=== PATIENT | female | born 1980 | race Caucasian/White ===

== ENCOUNTER 2017-12-11 07:23 | Emergency (ER) | payer BC ==
[2017-12-11 07:38] VITALS: BP 129/63
--- NOTE | 2017-12-11 08:00 | UC ---
Throat Pain/Nasal Kenneth HPI - HPI Summary HPI Summary: Patient states her children were diagnosed with strep throat and yesterday she started feeling unwell with sore throat which has become worse this morning. Denies chills or fever, denies cough. She states that as a child she had stomach upset with PCN but ever since she has taken it as an adult and has not had any allergic reactions to it. - History of Current Complaint Chief Complaint: UCRespiratory Stated Complaint: THROAT COMPLAINT Time Seen by Provider: 12/11/17 07:42 Hx Obtained From: Patient Hx Last Menstrual Period: 11/12 ?: No Onset/Duration: Gradual Onset, Lasting Days Severity: Moderate Pain Intensity: 7 Cough: None Associated Signs & Symptoms: Positive: Dysphagia Related History: Seasonal Allergies - Epiglottits Risk Factors Epiglottis Risk Factors: Negative - Allergies/Home Medications Allergies/Adverse Reactions: Allergies Allergy/AdvReac Type Severity Reaction Status Date / Time penicillin V Allergy Rash Verified 12/11/17 07:38 Home Medications: Home Medications Fexofenadine/Pseudoephedrine [Jessica-D 24 Hour Tablet] 1 each PO DAILY PRN [History Confirmed 12/11/17] PMH/Surg Hx/FS Hx/Imm Hx Previously Healthy: Yes - Surgical History Surgical History: Yes Surgery Procedure, Year, and Place: ectopic 2008, oopherectomy 2009 - Family History Known Family History: Positive: None - Social History Alcohol Use: Occasionally Substance Use Type: None Smoking Status (MU): Never Smoked Tobacco - Immunization History Most Recent Tetanus Shot: unknown Review of Systems ENT: Sore Throat All Other Systems Reviewed And Are Negative: Yes Physical Exam Triage Information Reviewed: Yes Appearance: Well-Appearing, No Pain Distress, Well-Nourished Vital Signs: Initial Vital Signs Temp 98.5 F 12/11/17 07:32 Pulse 74 12/11/17 07:32 Resp 18 12/11/17 07:32 BP 129/63 12/11/17 07:32 Pulse Ox 99 12/11/17 07:32 Vital Signs Reviewed: Yes Eyes: Positive: Conjunctiva Clear ENT: Positive: Hearing grossly normal, Pharynx normal, TMs normal, Uvula midline Neck: Positive: Supple, Nontender, No Lymphadenopathy Respiratory: Positive: Chest non-tender, Lungs clear, Normal breath sounds, No respiratory distress Cardiovascular: Positive: RRR, No Murmur, Pulses Normal, Brisk Capillary Refill Abdomen Description: Positive: Nontender Throat Pain/Nasal Course/Dx - Course Course Of Treatment: Rapid strep was positive, will start treatment with amoxil 875mg po bid for 10 days, continue PO fluids and probiotics. F/u PCP as needed. - Differential Dx/Diagnosis Provider Diagnoses: Streptococcal pharyngitis Discharge - Sign-Out/Discharge Documenting (check all that apply): Patient Departure All imaging exams completed and their final reports reviewed: No Studies - Discharge Plan Condition: Stable Disposition: HOME Patient Education Materials: Strep Throat (DC), Amoxicillin (By mouth) Referrals: Dominick Haines PA [Primary Care Provider] - - Billing Disposition and Condition Condition: STABLE Disposition: Home
== END 2017-12-11 08:08 | disposition home or self-care (01) ==
LOC: UCCORT 07:23
DX: Z88.0 Allergy status to penicillin (principal); J02.0 Streptococcal pharyngitis
CPT/HCPCS: 87651; 99212; G0463

== ENCOUNTER 2019-06-04 09:29 | Emergency (ER) | payer BC ==
[2019-06-04 10:13] VITALS: BP 138/71
--- NOTE | 2019-06-04 11:02 | UC ---
Throat Pain/Nasal Kenneth HPI - HPI Summary HPI Summary: 38 yo with 5 days of chest and sinus congestion with productive cough. - History of Current Complaint Chief Complaint: UCGeneralIllness Stated Complaint: COUGH RUNNY NOSE Time Seen by Provider: 06/04/19 10:54 Hx Obtained From: Patient Hx Last Menstrual Period: 12/18/17 Onset/Duration: Gradual Onset, Lasting Days Severity: Moderate Pain Intensity: 5 Cough: Productive Associated Signs & Symptoms: Positive: Wheezing, Sinus Discomfort - Epiglottits Risk Factors Epiglottis Risk Factors: Negative - Allergies/Home Medications Allergies/Adverse Reactions: Allergies Allergy/AdvReac Type Severity Reaction Status Date / Time Pt denies allergy to Allergy Unknown Uncoded 06/04/19 10:13 penicillin Reaction Details PMH/Surg Hx/FS Hx/Imm Hx Previously Healthy: Yes - Surgical History Surgical History: Yes Surgery Procedure, Year, and Place: ectopic 2008, RIGHT oopherectomy/ FALLOPIAN TUBE REMOVED- 2009 - Family History Known Family History: Positive: None, Cardiac Disease - Social History Occupation: Employed Full-time Lives: With Family Alcohol Use: Occasionally Substance Use Type: None Smoking Status (MU): Never Smoked Tobacco Have You Smoked in the Last Year: No - Immunization History Most Recent Tetanus Shot: unknown Review of Systems All Other Systems Reviewed And Are Negative: Yes Constitutional: Positive: Fatigue Skin: Positive: Negative Eyes: Positive: Negative ENT: Positive: Sore Throat, Ear Ache, Sinus Congestion Respiratory: Positive: Cough. Negative: Shortness Of Breath Cardiovascular: Negative: Palpitations, Chest Pain Gastrointestinal: Positive: Negative Genitourinary: Positive: Negative Motor: Positive: Negative Neurovascular: Positive: Negative Musculoskeletal: Positive: Negative Neurological/Mental Status: Positive: Negative Psychological: Positive: Negative Is Patient Immunocompromised?: No Physical Exam Triage Information Reviewed: Yes Appearance: Well-Appearing, No Pain Distress Vital Signs: Initial Vital Signs Temp 98.8 F 06/04/19 10:10 Pulse 90 06/04/19 10:10 Resp 18 06/04/19 10:10 BP 138/71 06/04/19 10:10 Pulse Ox 98 06/04/19 10:10 Eyes: Positive: Conjunctiva Clear ENT: Positive: Pharyngeal erythema, TM dull - + bilateral serous fluid Neck: Positive: Supple, Nontender, No Lymphadenopathy Respiratory: Positive: Lungs clear, Normal breath sounds Cardiovascular: Positive: RRR, No Murmur Musculoskeletal Exam: Normal Neurological Exam: Normal Psychological Exam: Normal Skin Exam: Normal Throat Pain/Nasal Course/Dx - Course Course Of Treatment: amoxicillin for treatment of sinusitis - Differential Dx/Diagnosis Differential Diagnosis/HQI/PQRI: Pharyngitis, Sinusitis, Tonsillitis, URI Provider Diagnosis: Sinusitis Discharge ED - Sign-Out/Discharge Documenting (check all that apply): Patient Departure All imaging exams completed and their final reports reviewed: No Studies - Discharge Plan Condition: Stable Disposition: HOME Prescriptions: Amoxicillin PO (*) [Amoxicillin 875 MG (*)] 875 mg PO BID #20 tab Patient Education Materials: Sinusitis (ED) Referrals: Dominick Haines PA [Primary Care Provider] - Additional Instructions: Begin treatment with amoxicillin, and increase rest and fluids. If you develop increased fever or cough or difficulty breathing, please return for reassessment. - Billing Disposition and Condition Condition: STABLE Disposition: Home
== END 2019-06-04 11:26 | disposition home or self-care (01) ==
LOC: UCCORT 09:29
DX: J32.9 Chronic sinusitis, unspecified (principal); J39.2 Other diseases of pharynx; H92.09 Otalgia, unspecified ear
CPT/HCPCS: 99212; G0463